=== PATIENT | female | born 1990 | race Caucasian/White ===

== ENCOUNTER 2025-05-17 07:59 | Outpatient (AMB) | payer OTHER, SELFPAY ==
--- OUTSIDE RECORDS SUMMARY | 2025-05-17 08:01 | XMS_ITS | Encounter Summary ---
Author Organization [employer] Address [address] [facility] [address] [place] [address] Care Team Providers Care Occupational Work Experience Teacher Name Role Phone Cory Desai NP Primary Care Provider + [phone] Reason for Visit * Reason Comments Med Refill Encounter Details Date Type Department Care Team (Late st Contact Info) Description 01/24/2025 Refill [facility] MEDICAL [address] [place] [address] [facility] [address] [place] [address] Anxiety Social History Tobacco Use Types Packs/Day Years Used Date Smoking Tobacco: Former Cigarettes 0.3 1 2 008 - 2009 Smokeless Tobacco: Never Alcohol Use Standard Drinks/Week Comments Yes 0 (1 standard drink = 0.6 oz pur e alcohol) rare Housing Stability Answer Date Recorded What is your housing situation today? I have bibiana alvarez 07/13/[address] you li ve. Do you have problems with any of the following? None of the above 07/13/2024 Food Insecurity Answer Date Recorded Within the past 12 months, y ou worried that your food would run out before you got money to buy more: Never True 07/13/2024 Within the past 12 months,th e food you bought just didn't last and you didn't have enough money to get more: Never True 01/2024 Transportation Answer Date Recorded In the past 12 months, has l ack of transportation kept you from medical appts, meetings, work or from getting things needed for daily living? No 07/13/2024 Utilities Answer Date Recorded In the past 12 months, has t he electric, gas, oil or water company threatened to shut off services in your home? No 07/13/2024 Depression Answer Date Recorded Patient Health Questionnaire-2 Score 0 07/13/2024 Internet Access Answer Date Recorded Internet Access Q1 Yes 07/13/2024 Internet Access Q2 Not on file 07/13/2024 Comments Unknown Sex and Gender Information Value Date Recorded Sex Assigned at Female 12/12/2022 10:39 AM EST Legal Sex Female 8:37 PM EDT Gender Identity Female 12/12/2022 10:39 AM EST Sexual Orientation Bisexual 12/12/2022 10 :39 AM EST documented as of this encounter Miscellaneous Notes * Telephone Encounter - MARGOT Taylor - 01/24/2025 11:50 AM EDT Duplicate documented in this encounter Plan of Treatment Not on file documented as of this encounter Visit Diagnoses Diagnosis Anxiety Anxiety state, unspecified documented in this encounter Care Teams Occupational Work Experience Teacher Relationship Specialty Start Date End Date Cory Desai NP [address] [place] [address] PCP - General Internal Medicine 10/10/22 documented as of this encounter
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
== END 2025-05-17 09:03 | disposition home or self-care (01) ==
LOC: HO.HSM 07:59
PROVIDERS: Visit Provider Psychiatry & Neurology Neurology
DX: S13.9XXA Sprain of joints and ligaments of unspecified parts of neck, initial encounter (principal); F07.81 Postconcussional syndrome; F90.9 Attention-deficit hyperactivity disorder, unspecified type
CPT/HCPCS: 99214

== ENCOUNTER → 2025-05-17 07:59 | Outpatient (BNVA) | payer OTHER, SELFPAY | PROVIDERS: Visit Provider Psychiatry & Neurology Neurology | DX: S13.9XXA Sprain of joints and ligaments of unspecified parts of neck, initial encounter (principal); F07.81 Postconcussional syndrome; F90.9 Attention-deficit hyperactivity disorder, unspecified type; R51.9 Headache, unspecified | CPT/HCPCS: 99212 ==